=== PATIENT | male | born 1995 | race Hispanic/Latino ===

== ENCOUNTER 2023-10-06 12:19 | Emergency (ER) | payer SELFPAY ==
[2023-10-06] MEDS ORDERED: Ibuprofen 800 MG TAB ONE (12:44)
== END 2023-10-06 15:26 | disposition home or self-care (01) ==
LOC: ERS 12:19
DX: S93.432A Sprain of tibiofibular ligament of left ankle, initial encounter (principal); F17.210 Nicotine dependence, cigarettes, uncomplicated; X50.3XXA Overexertion from repetitive movements, initial encounter